=== PATIENT | male | born 1950 | race Two or more races ===

== ENCOUNTER 2019-10-23 | Emergency (ER) | payer SELFPAY ==
[2019-10-23 11:34] LABS: HEMATOCRIT 40.2 % (39.0-50.0); HEMOGLOBIN 13.1 g/dl (14.0-18.0); IMMATURE GRANULOCYTES 0.2 % (0.0-5.0); MEAN CELL VOLUME 87.2 fL CALC (80.0-100.0); MEAN CORPUSCULAR HGB 28.4 pG CALC (26.0-32.0); MEAN CORPUSCULAR HGB CONC 32.6 g/L CALC (32.0-36.0); NEUT# 11.68 thou/uL (1.82-7.42); RED BLOOD COUNT 4.61 mill/uL (4.70-6.10); RED CELL DISTRI WIDTH 12.6 % (11.5-15.5)
[2019-10-23] MEDS ORDERED: DOXYCYCL HYC100 MG PO (11:49)
== END 2019-10-23 11:55 | disposition home or self-care (01) | DRG 195 ==
PROVIDERS: Family Medicine
DX: J18.9 Pneumonia, unspecified organism (principal)